=== PATIENT | male | born 1940 | race Caucasian/White ===

== ENCOUNTER 2019-07-15 14:08 | Emergency (ER) | payer MEDICARE, BC ==
--- NOTE | 2019-07-15 15:31 | EDM.PDOC ---
ED HPI GENERAL MEDICAL PROBLEM - General Chief Complaint: Respiratory Problem Stated Complaint: COUGH AND SOB Time Seen by Provider: 07/15/19 14:16 Source of Information: Reports: Patient, RN Notes Reviewed - History of Present Illness INITIAL COMMENTS - FREE TEXT/NARRATIVE: 79-year-old male comes in when he describes as severe productive cough for the last 3-1/2 weeks. This has been productive of both clear and colored phlegm. He' s had no fever or chills. He has nasal or sinus congestion. He denies sore throat. He has a long standing history of smoking and does continue to smoke with "no intention to quit". No chest pain or difficulty breathing at this time. He does have history of prior pneumonia. - Related Data Allergies Allergy/AdvReac Type Severity Reaction Status Date / Time doxycycline Allergy Vomiting Verified 07/15/19 14:15 Home Meds: Home Meds Aspirin [Halfprin] 325 mg PO DAILY 05/16/15 [History] Metoprolol Tartrate 12.5 mg PO BID 05/16/15 [History] PHENobarbital 60 mg PO BEDTIME 05/16/15 [History] Phenytoin 100 mg PO DAILY 05/16/15 [History] Phenytoin 200 mg PO BEDTIME 05/16/15 [History] Sertraline [Zoloft] 50 mg PO DAILY 05/16/15 [History] Simvastatin [Zocor] 40 mg PO BEDTIME 05/16/15 [History] Zonisamide [Zonegran] 300 mg PO Q12H 05/16/15 [History] Levofloxacin [Levaquin] 500 mg PO DAILY #9 tablet 07/15/19 [Rx] diphenhydrAMINE [Benadryl] 50 mg PO BEDTIME 07/15/19 [History] predniSONE [Prednisone] 20 mg PO DAILY #6 tablet 07/15/19 [Rx] Past Medical History HEENT History: Reports: Cataract, Impaired Vision Other HEENT History: wears eyeglasses. Cardiovascular History: Reports: High Cholesterol, Hypertension, [place] Respiratory History: Reports: Bronchitis, Recurrent, COPD, Pneumonia, Recurrent Gastrointestinal History: Reports: Chronic Constipation Other Gastrointestinal History: spleenectomy Genitourinary History: Reports: Prostate Disorder, Other (See Below) Other Genitourinary History: has difficulty with voiding. Musculoskeletal History: Reports: Fracture Neurological History: Reports: CVA, Seizure Psychiatric History: Reports: Addiction Oncologic (Cancer) History: Reports: Squamous Cell Carcinoma Dermatologic History: Reports: Other (See Below) Other Dermatologic History: skin cancer. - Infectious Disease History Infectious Disease History: Reports: Chicken Pox, Measles, Mumps - Past Surgical History HEENT Surgical History: Reports: Cataract Surgery Other HEENT Surgeries/Procedures: "ptergin" taken off of eye Cardiovascular Surgical History: Reports: Coronary Artery Bypass Other Cardiovascular Surgeries/Procedures: triple vessel Musculoskeletal Surgical History: Reports: Other (See Below) Other Musculoskeletal Surgeries/Procedures:: surgery for Fx wrist. Social & Family History - Tobacco Use Smoking Status *Q: Current Every Day Smoker Years of Tobacco use: 60 Packs/Tins Daily: 1 - Caffeine Use Caffeine Use: Reports: Coffee - Recreational Drug Use Recreational Drug Use: No ED ROS GENERAL - Review of Systems Review Of Systems: See Below Constitutional: Denies: Fever, Chills HEENT: Denies: Sinus Problem, Throat Pain Respiratory: Reports: Shortness of Breath (Chronically), Wheezing, Cough, Sputum Cardiovascular: Denies: Chest Pain GI/Abdominal: Denies: Abdominal Pain, Nausea, Vomiting Musculoskeletal: Reports: No Symptoms (No acute symptoms) Skin: Reports: No Symptoms Neurological: Reports: Dizziness (Mild chronically when standing or walking) ED EXAM, GENERAL - Physical Exam Exam: See Below General Appearance: Alert, No Apparent Distress Throat/Mouth: Normal Inspection Head: No: Facial Swelling Neck: Supple, Full Range of Motion, Other (No JVD) Respiratory/Chest: Respiratory Distress (Mild tachypnea), Rhonchi, Wheezing ( Bilateral mild bilateral) Cardiovascular: Tachycardia GI/Abdominal: Soft, Non-Tender Extremities: Normal Inspection, No Pedal Edema. No: Leg Pain, Increased Warmth , Redness Neurological: Alert, Oriented, No Motor/Sensory Deficits Skin Exam: Warm, Dry, Normal Color Course - Vital Signs Last Recorded V/S: Last Vital Signs Temp 99.6 F 07/15/19 16:15 Pulse 104 H 07/15/19 16:15 Resp 20 07/15/19 16:15 BP 135/74 07/15/19 16:15 Pulse Ox 90 L 07/15/19 16:15 - Orders/Labs/Meds Orders: Active Orders 24 hr Category Date Time Status CULTURE BLOOD [BC] Stat Lab 07/15/19 15:09 Received Labs: Laboratory Tests 07/15/19 07/15/19 07/15/19 Range/Units 15:09 15:09 15:09 WBC 14.59 H (4.23-9.07) K/mm3 RBC 4.25 L (4.63-6.08) M/mm3 Hgb 13.5 L (13.7-17.5) gm/dl Hct 42.5 (40.1-51.0) % MCV 100.0 H (79.0-92.2) fl MCH 31.8 (25.7-32.2) pg MCHC 31.8 L (32.2-35.5) g/dl RDW Std Deviation 51.2 H (35.1-43.9) fL Plt Count 332 (163-337) K/mm3 MPV 9.5 (9.4-12.3) fl Neut % (Auto) 74.6 H (34.0-67.9) % Lymph % (Auto) 11.9 L (21.8-53.1) % Lee % (Auto) 12.6 H (5.3-12.2) % Eos % (Auto) 0.3 L (0.8-7.0) Baso % (Auto) 0.4 (0.1-1.2) % Neut # (Auto) 10.89 H (1.78-5.38) K/mm3 Lymph # (Auto) 1.73 (1.32-3.57) K/mm3 Lee # (Auto) 1.84 H (0.30-0.82) K/mm3 Eos # (Auto) 0.04 (0.04-0.54) K/mm3 Baso # (Auto) 0.06 (0.01-0.08) K/mm3 Manual Slide Review Abnormal smear Sodium 140 (136-145) mEq/L Potassium 4.9 (3.5-5.1) mEq/L Chloride 105 (98-107) mEq/L Carbon Dioxide 26 (21-32) mEq/L Anion Gap 13.9 (5-15) BUN 12 (7-18) mg/dL Creatinine 0.9 (0.7-1.3) mg/dL Est Cr Clr Drug Dosing 63.36 mL/min Estimated GFR (MDRD) > 60 (>60) mL/min BUN/Creatinine Ratio 13.3 L (14-18) Glucose 95 (83-115) mg/dL Calcium 9.5 (8.5-10.1) mg/dL Total Bilirubin 0.3 (0.2-1.0) mg/dL AST 12 L (15-37) U/L ALT 14 L (16-63) U/L Alkaline Phosphatase 132 H (46-116) U/L C-Reactive Protein 11.0 H* (<1.0) mg/dL Total Protein 8.5 H (6.4-8.2) g/dl Albumin 3.1 L (3.4-5.0) g/dl Globulin 5.4 gm/dL Albumin/Globulin Ratio 0.6 L (1-2) Meds: Medications Discontinued Medications Generic Name Dose Route Start Last Admin Trade Name Micheleq PRN Reason Stop Dose Admin Levofloxacin 500 mg 07/15/19 16:03 07/15/19 16:20 Levaquin PO 07/15/19 16:04 500 mg ONETIME ONE Administration Prednisone 40 mg 07/15/19 16:03 07/15/19 16:18 Prednisone PO 07/15/19 16:04 40 mg ONETIME ONE Administration - Re-Assessments/Exams Free Text/Narrative Re-Assessment/Exam: 07/15/19 16:50 Chest x-ray shows severe emphysematous change from chronic smoking history, interstitial fibrosis but nothing that looks like an acute infiltrate at this time. See radiology report for details. White blood count was elevated and C- reactive protein also mildly elevated. he does have bronchitis, exacerbation COPD. He has been coughing up colored phlegm, getting worse. I was considering putting him on doxycycline but his states doxycycline makes him vomit. Will start on Levaquin 500 milligrams daily for a total duration of 10 days. Discharge instructions as documented. 07/16/19 07:23 Departure - Departure Time of Disposition: 16:02 Disposition: Home, Self-Care 01 Condition: Fair Clinical Impression: COPD exacerbation - Discharge Information Prescriptions: Levofloxacin [Levaquin] 500 mg PO DAILY #9 tablet predniSONE [Prednisone] 20 mg PO DAILY #6 tablet Instructions: Chronic Obstructive Pulmonary Disease, [id number] Referrals: Long Rosado PA-C [Primary Care Provider] - Forms: ED Department Discharge Additional Instructions: You've been given Levaquin 500 mg and prednisone 40 mg orally while here in the ED. Continue Levaquin 500 mg daily for the next 9 days. Continue prednisone 20 mg every morning for the next 6 days. Continue other current medications as prescribed. Try hard to stop smoking. Vaporizer or steam as needed. Neb treatments as needed. Follow-up clinic in one week for recheck, call for appointment. Return to ED as needed if symptoms worsening in any way. - My Orders Last 24 Hours: My Active Orders 07/15/19 15:09 CULTURE BLOOD [BC] Stat - Assessment/Plan Last 24 Hours: My Active Orders 07/15/19 15:09 CULTURE BLOOD [BC] Stat
--- NOTE | 2019-07-15 15:37 | CR ---
Chest: Two views of the chest were obtained. Comparison: Prior chest x-ray of 12/11/18. Lungs are hyperinflated compatible with emphysematous change. Interstitial change is noted most likely due to interstitial fibrosis as this appears fairly similar to prior exam. No definite acute parenchymal change is seen. Previous sternotomy is noted. Heart is not enlarged. Mediastinum is normal. Bony structures are osteopenic. Slight degenerative spurring is scattered within the spine. Impression: 1. Emphysematous change and probable interstitial fibrosis. 2. Other findings which are believed to be incidental. Nothing acute is appreciated. Diagnostic code #2
[2019-07-15] MEDS ORDERED: predniSONE 20 MG Tab PO ONE (16:03)
[2019-07-15] MEDS ORDERED: Levofloxacin 500 MG Tab PO ONE (16:03)
[2019-07-15 16:33] VITALS: BP 135/74; PULSE 104
== END 2019-07-15 16:30 | disposition home or self-care (01) ==
LOC: JD.ED 14:08
DX: J44.1 Chronic obstructive pulmonary disease with (acute) exacerbation (principal); I10 Essential (primary) hypertension; I25.2 Old myocardial infarction; E78.00 Pure hypercholesterolemia, unspecified; G40.909 Epilepsy, unspecified, not intractable, without status epilepticus; F17.210 Nicotine dependence, cigarettes, uncomplicated; Z79.82 Long term (current) use of aspirin; Z88.1 Allergy status to other antibiotic agents; Z79.899 Other long term (current) drug therapy; Z86.73 Personal history of transient ischemic attack (TIA), and cerebral infarction without residual deficits; Z79.52 Long term (current) use of systemic steroids
CPT/HCPCS: 36415; 71046; 80053; 85025; 86140; 87040; 99283; A9270

== ENCOUNTER 2019-10-27 12:28 | Emergency (ER) | payer MEDICARE, BC ==
[2019-10-27 12:59] VITALS: BP 141/84; PULSE 96
[2019-10-27] MEDS ORDERED: Sodium Chloride 0.9% 10 ML Syringe FLUSH PRN (13:10)
[2019-10-27] MEDS ORDERED: Lidocaine/EPINEPHrine/Tetracaine Soln 1 ML TOP ONE (13:10)
[2019-10-27] MEDS ORDERED: Phenytoin 100 MG Cap.ER PO ONE (14:09)
--- NOTE | 2019-10-27 14:09 | CR ---
Chest: Two views of the chest were obtained. Comparison: Prior chest x-ray of 07/23/19. Lungs are hyperinflated compatible with emphysematous change. Mild interstitial fibrosis is noted which appears to be stable. Heart size is normal. Upper mediastinum is normal. 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 Impression: 1. Emphysematous change and stable interstitial fibrosis. 2. Nothing acute is identified. Diagnostic code #2 This report was dictated in [place] Standard Time
--- NOTE | 2019-10-27 14:18 | EDM.PDOC ---
ED HPI GENERAL MEDICAL PROBLEM - General Chief Complaint: Neurological Problem Stated Complaint: FALLS,SEIZURES,HEAD LAC Time Seen by Provider: 10/27/19 12:51 Source of Information: Reports: Patient, Family History Limitations: Reports: No Limitations - History of Present Illness INITIAL COMMENTS - FREE TEXT/NARRATIVE: The patient presents because of a seizure. He has a history of seizures. He has had 3 in the past month. Normally he will get 3 in a year. He is on dilantin and zonisamide. He saw his neurologist Dr Fontenot 1 month ago and all his labs and levels looked good. He may have missed a dose here or there but nothing consistently. He has no fever, chills, abdominal pain, nausea or vomiting. He does smoke and he has a cough but that is not new. He has been getting less sleep lately. He did fall and cut the top of his head. His tetanus is up to date. Onset: Sudden Duration: Minutes: Location: Reports: Head Quality: Reports: Ache Severity: Mild Improves with: Reports: None Worsens with: Reports: None Associated Symptoms: Reports: Cough, Headaches. Denies: Chest Pain, Fever/ Chills, Nausea/Vomiting, Shortness of Breath - Related Data Allergies Allergy/AdvReac Type Severity Reaction Status Date / Time doxycycline Allergy Vomiting Verified 10/27/19 12:59 Home Meds: Home Meds Aspirin [Halfprin] 325 mg PO DAILY 05/16/15 [History] Metoprolol Tartrate 12.5 mg PO BID 05/16/15 [History] PHENobarbitaL [PHENobarbital] 30 mg PO BEDTIME 05/16/15 [History] Sertraline [Zoloft] 50 mg PO DAILY 05/16/15 [History] Simvastatin [Zocor] 80 mg PO BEDTIME 05/16/15 [History] Zonisamide [Zonegran] 100 mg PO Q12H 05/16/15 [History] Folic Acid 1 mg PO DAILY 10/27/19 [History] Phenytoin Sodium Extended [Dilantin] 100 mg PO ASDIRECTED 10/27/19 [History] Phenytoin Sodium Extended [Dilantin] 200 mg PO BEDTIME 10/27/19 [History] Phenytoin Sodium Extended [Dilantin] 200 mg PO BID #120 capsule 10/27/19 [Rx] Past Medical History HEENT History: Reports: Cataract, Impaired Vision Other HEENT History: wears eyeglasses. Cardiovascular History: Reports: High Cholesterol, Hypertension, [place] Respiratory History: Reports: Bronchitis, Recurrent, COPD, Pneumonia, Recurrent Gastrointestinal History: Reports: Chronic Constipation Other Gastrointestinal History: spleenectomy Genitourinary History: Reports: Prostate Disorder, Other (See Below) Other Genitourinary History: has difficulty with voiding. Musculoskeletal History: Reports: Fracture Neurological History: Reports: CVA, Seizure Psychiatric History: Reports: Addiction Oncologic (Cancer) History: Reports: Squamous Cell Carcinoma Dermatologic History: Reports: Other (See Below) Other Dermatologic History: skin cancer. - Infectious Disease History Infectious Disease History: Reports: Chicken Pox, Measles, Mumps - Past Surgical History HEENT Surgical History: Reports: Cataract Surgery Other HEENT Surgeries/Procedures: "ptergin" taken off of eye Cardiovascular Surgical History: Reports: Coronary Artery Bypass Other Cardiovascular Surgeries/Procedures: triple vessel Musculoskeletal Surgical History: Reports: Other (See Below) Other Musculoskeletal Surgeries/Procedures:: surgery for Fx wrist. Social & Family History - Tobacco Use Smoking Status *Q: Current Every Day Smoker Years of Tobacco use: 50 Packs/Tins Daily: 1 - Caffeine Use Caffeine Use: Reports: Coffee, Soda - Recreational Drug Use Recreational Drug Use: No ED ROS GENERAL - Review of Systems Review Of Systems: See Below Constitutional: Reports: No Symptoms HEENT: Reports: No Symptoms Respiratory: Reports: Cough. Denies: Shortness of Breath Cardiovascular: Reports: No Symptoms Endocrine: Reports: No Symptoms GI/Abdominal: Reports: No Symptoms : Reports: No Symptoms Musculoskeletal: Reports: No Symptoms Skin: Reports: No Symptoms Neurological: Reports: Headache - Physical Exam Exam: See Below Exam Limited By: No Limitations General Appearance: Alert, No Apparent Distress Ears: Normal External Exam Nose: Normal Inspection Throat/Mouth: Normal Inspection Head Exam: Other (2cm laceration to the top of his head) Neck: Normal Inspection, Supple, Non-Tender Respiratory/Chest: No Respiratory Distress, Lungs Clear, Normal Breath Sounds Cardiovascular: Regular Rate, Rhythm, No Edema, No Murmur GI/Abdominal: Soft, Non-Tender, No Organomegaly, No Mass Neuro Exam (Abbreviated): Alert, Oriented, No Motor/Sensory Deficits ED PROCEDURES - Laceration/Wound Repair Head Lac/wound length in cm: 2 Appearance: Irregular Anesthetic Type: Topical (LET) Exploration/Debridement/Repair: Wound Explored, In a Bloodless Field, Explored to Base Closed with: Wound Adhesive Tetanus Status Addressed: Yes Complications: No Course - Vital Signs Last Recorded V/S: Last Vital Signs Temp 97.0 F 10/27/19 12:51 Pulse 96 10/27/19 12:51 Resp 20 10/27/19 12:51 BP 141/84 H 10/27/19 12:51 Pulse Ox 98 10/27/19 12:51 - Orders/Labs/Meds Orders: Active Orders 24 hr Category Date Time Status Cardiac Monitoring [RC] . DIRECTED Care 10/27/19 13:09 Active Peripheral IV Care [RC] . DIRECTED Care 10/27/19 13:10 Active ZONISAMIDE(ZONEGRAN), SERUM [REF] Stat Lab 10/27/19 13:01 Received Sodium Chloride 0.9% [Saline Flush] Med 10/27/19 13:10 Active 10 ml FLUSH ASDIRECTED PRN Peripheral IV Insertion Adult [OM.PC] Routine Oth 10/27/19 13:10 Ordered Medication Orders Sodium Chloride (Saline Flush) 10 ml FLUSH ASDIRECTED PRN PRN Reason: Keep Vein Open Last Admin: 10/27/19 14:04 Dose: 10 ml Labs: Laboratory Tests 10/27/19 10/27/19 Range/Units 13:01 13:01 WBC 11.24 H (4.23-9.07) K/mm3 RBC 4.23 L (4.63-6.08) M/mm3 Hgb 13.8 (13.7-17.5) gm/dl Hct 41.6 (40.1-51.0) % MCV 98.3 H (79.0-92.2) fl MCH 32.6 H (25.7-32.2) pg MCHC 33.2 (32.2-35.5) g/dl RDW Std Deviation 51.2 H (35.1-43.9) fL Plt Count 302 D (163-337) K/mm3 MPV 9.6 (9.4-12.3) fl Neut % (Auto) 73.9 H (34.0-67.9) % Lymph % (Auto) 15.9 L (21.8-53.1) % Payne % (Auto) 8.2 (5.3-12.2) % Eos % (Auto) 1.3 (0.8-7.0) Baso % (Auto) 0.7 (0.1-1.2) % Neut # (Auto) 8.30 H (1.78-5.38) K/mm3 Lymph # (Auto) 1.79 (1.32-3.57) K/mm3 Payne # (Auto) 0.92 H (0.30-0.82) K/mm3 Eos # (Auto) 0.15 (0.04-0.54) K/mm3 Baso # (Auto) 0.08 (0.01-0.08) K/mm3 Manual Slide Review Normal smear Sodium 135 L (136-145) mEq/L Potassium 4.3 (3.5-5.1) mEq/L Chloride 101 (98-107) mEq/L Carbon Dioxide 23 (21-32) mEq/L Anion Gap 15.3 H (5-15) BUN 14 (7-18) mg/dL Creatinine 0.9 (0.7-1.3) mg/dL Est Cr Clr Drug Dosing 47.74 mL/min Estimated GFR (MDRD) > 60 (>60) mL/min BUN/Creatinine Ratio 15.6 (14-18) Glucose 80 L (83-115) mg/dL Calcium 9.0 (8.5-10.1) mg/dL Magnesium 2.3 (1.8-2.4) mg/dl Total Bilirubin 0.3 (0.2-1.0) mg/dL AST 16 (15-37) U/L ALT 20 (16-63) U/L Alkaline Phosphatase 151 H (46-116) U/L Total Protein 8.5 H (6.4-8.2) g/dl Albumin 3.8 (3.4-5.0) g/dl Globulin 4.7 gm/dL Albumin/Globulin Ratio 0.8 L (1-2) Phenytoin 7.2 L (10.0-20.0) ug/mL Meds: Medications Generic Name Dose Route Start Last Admin Trade Name Freq PRN Reason Stop Dose Admin Sodium Chloride 10 ml 10/27/19 13:10 10/27/19 14:04 Saline Flush FLUSH 10 ml ASDIRECTED PRN Administration Keep Vein Open Discontinued Medications Generic Name Dose Route Start Last Admin Trade Name Luna PRN Reason Stop Dose Admin Lidocaine/Tetracaine 1 ml 10/27/19 13:10 10/27/19 14:04 Margret Donnelly TOP 10/27/19 13:11 1 ml ONETIME ONE Administration Phenytoin Sodium 300 mg 10/27/19 14:09 10/27/19 14:23 Phenytoin PO 10/27/19 14:10 300 mg ONETIME ONE Administration - Re-Assessments/Exams Free Text/Narrative Re-Assessment/Exam: 10/27/19 14:16 I ordered an IV saline lock, CT of his head, CXR and labs. His CXR shows emphysematous change and stable interstitial fibrosis. Nothing acute is identified. His WBC is a little elevated at 11.24. His Na was a little low at 135. His anion gap was 15.3. His alk phos was elevated at 151. His phenytoin was low at 7.2. His lipase is normal. His troponin is negative. 10/27/19 15:[address] of his head shows nothing acute. I closed the laceration with adhesive. I gave him a dose of dilantin here. I will up him to 200mg BID. Departure - Departure Time of Disposition: 15:50 Disposition: Home, Self-Care 01 Condition: Good Clinical Impression: Seizure Fall Qualifiers: Encounter type: initial encounter Qualified Code(s): W19.XXXA - Unspecified fall, initial encounter Laceration of head Qualifiers: Encounter type: initial encounter Location of open wound of head: scalp Foreign body presence: without foreign body Qualified Code(s): S01.01XA - Laceration without foreign body of scalp, initial encounter - Discharge Information *PRESCRIPTION DRUG MONITORING PROGRAM REVIEWED*: Not Applicable *COPY OF PRESCRIPTION DRUG MONITORING REPORT IN PATIENT KELLY: Not Applicable Prescriptions: Phenytoin Sodium Extended [Dilantin] 200 mg PO BID #120 capsule Referrals: Long Rosado PA-C [Primary Care Provider] - 1 Week Forms: ED Department Discharge Additional Instructions: Take the phenytoin 200mg 2 times per day. Take your other medications as prescribed. The adhesive on your head will wear off in about a week. Look for any signs of infection such as redness, swelling, pain, or discharge. If you see these signs please return of see your provider. You may need some antibiotics. Try to get more sleep and avoid alcohol like you have been doing. Sepsis Event Note - Evaluation Sepsis Screening Result: No Definite Risk - Focused Exam Vital Signs: Vital Signs Temp Pulse Resp BP Pulse Ox 10/27/19 12:51 97.0 F 96 20 141/84 H 98 Date Exam was Performed: 10/27/19 Time Exam was Performed: 15:37 - My Orders Last 24 Hours: My Active Orders 10/27/19 13:01 ZONISAMIDE(ZONEGRAN), SERUM [REF] Stat 10/27/19 13:09 Cardiac Monitoring [RC] . DIRECTED 10/27/19 13:10 Peripheral IV Care [RC] . DIRECTED Sodium Chloride 0.9% [Saline Flush] 10 ml FLUSH ASDIRECTED PRN Peripheral IV Insertion Adult [OM.PC] Routine - Assessment/Plan Last 24 Hours: My Active Orders 10/27/19 13:01 ZONISAMIDE(ZONEGRAN), SERUM [REF] Stat 10/27/19 13:09 Cardiac Monitoring [RC] . DIRECTED 10/27/19 13:10 Peripheral IV Care [RC] . DIRECTED Sodium Chloride 0.9% [Saline Flush] 10 ml FLUSH ASDIRECTED PRN Peripheral IV Insertion Adult [OM.PC] Routine
--- NOTE | 2019-10-27 15:19 | CT ---
Head CT Technique: Multiple axial sections through the brain were obtained. Intravenous contrast was not utilized. Comparison: No prior intracranial imaging is available. Findings: Linear area of calcification as well as adjacent fat is seen interhemispheric falx anteriorly which is believed to be benign and most likely is chronic. Ventricles along with basal cisterns and sulci over the convexities are mildly prominent. Mild diminished density is noted within the periventricular and subcortical white matter compatible with small vessel ischemic demyelination change. Atherosclerotic calcification is seen within the carotid siphon. Moderate mucosal thickening is seen within right maxillary sinus. Calcification is noted within the right ethmoid sinus most likely due to osteoma. No acute calvarial abnormality is appreciated. Mastoid sinuses are clear. Impression: 1. Sinus findings which are most likely chronic. 2. Linear calcification as well as adjacent fat within the anterior interhemispheric falx which is most likely benign. 3. Senescent change as noted above. Nothing acute is appreciated. Diagnostic code #2 Study was dictated in [place] Standard Time
== END 2019-10-27 15:50 | disposition home or self-care (01) ==
LOC: JD.ED 12:28
DX: S01.01XA Laceration without foreign body of scalp, initial encounter (principal); G40.909 Epilepsy, unspecified, not intractable, without status epilepticus; E78.00 Pure hypercholesterolemia, unspecified; I10 Essential (primary) hypertension; I25.2 Old myocardial infarction; J44.9 Chronic obstructive pulmonary disease, unspecified; F17.210 Nicotine dependence, cigarettes, uncomplicated; Z88.1 Allergy status to other antibiotic agents; Z86.73 Personal history of transient ischemic attack (TIA), and cerebral infarction without residual deficits; Z79.82 Long term (current) use of aspirin; Z79.899 Other long term (current) drug therapy; W01.10XA Fall on same level from slipping, tripping and stumbling with subsequent striking against unspecified object, initial encounter
CPT/HCPCS: 36415; 70450; 71046; 80053; 80185; 80203; 83735; 85025; 99284; A9270; 12001; 99283

== ENCOUNTER 2019-12-29 12:28 | Emergency (ER) | payer MEDICARE, BC ==
[2019-12-29] MEDS ORDERED: Sodium Chloride 0.9% 10 ML Syringe FLUSH PRN (12:47)
[2019-12-29 12:57] VITALS: BP 135/75; PULSE 70
--- NOTE | 2019-12-29 13:06 | EDM.PDOC ---
ED HPI GENERAL MEDICAL PROBLEM - General Chief Complaint: Head Injury Stated Complaint: FELL AND HIT HEAD Time Seen by Provider: 12/29/19 12:45 Source of Information: Reports: Patient, Old Records History Limitations: Reports: No Limitations - History of Present Illness INITIAL COMMENTS - FREE TEXT/NARRATIVE: Aleta is a 79 year old male here for a head injury. Reports he was walking when his legs gave out and he struck his head against a door. Laceration to the right parietal scalp. No LOC. Reports a headache. no neck pain, vision changes, nausea, vomiting, chest pain or shortness of breath. Patient has a seizure history. Reportedly has been having seizures at night (per his wife0. would like his Dilantin level checked today. He is on 325mg aspirin daily. - Related Data Allergies Allergy/AdvReac Type Severity Reaction Status Date / Time doxycycline Allergy Vomiting Verified 10/27/19 12:59 Home Meds: Home Meds Aspirin [Halfprin] 325 mg PO DAILY 05/16/15 [History] Metoprolol Tartrate 25 mg PO BEDTIME 05/16/15 [History] PHENobarbitaL [PHENobarbital] 0 mg PO BEDTIME 05/16/15 [History] Sertraline [Zoloft] 50 mg PO DAILY 05/16/15 [History] Simvastatin [Zocor] 80 mg PO BEDTIME 05/16/15 [History] Zonisamide [Zonegran] 300 mg PO Q12H 05/16/15 [History] Folic Acid 1 mg PO DAILY 10/27/19 [History] Phenytoin Sodium Extended [Dilantin] 200 mg PO BID #120 capsule 10/27/19 [Rx] Past Medical History HEENT History: Reports: Cataract, Impaired Vision Other HEENT History: wears eyeglasses. Cardiovascular History: Reports: High Cholesterol, Hypertension, AR Respiratory History: Reports: Bronchitis, Recurrent, COPD, Pneumonia, Recurrent Gastrointestinal History: Reports: Chronic Constipation Other Gastrointestinal History: spleenectomy Genitourinary History: Reports: Prostate Disorder, Other (See Below) Other Genitourinary History: has difficulty with voiding. Musculoskeletal History: Reports: Fracture Neurological History: Reports: CVA, Head Trauma, Seizure Psychiatric History: Reports: Addiction Oncologic (Cancer) History: Reports: Squamous Cell Carcinoma Dermatologic History: Reports: Other (See Below) Other Dermatologic History: skin cancer. - Infectious Disease History Infectious Disease History: Reports: Chicken Pox, Measles, Mumps - Past Surgical History Head Surgeries/Procedures: Reports: Craniotomy HEENT Surgical History: Reports: Cataract Surgery Other HEENT Surgeries/Procedures: "ptergin" taken off of eye. Cranial surgery Cardiovascular Surgical History: Reports: Coronary Artery Bypass Other Cardiovascular Surgeries/Procedures: triple vessel GI Surgical History: Reports: None, Appendectomy, Cholecystectomy Musculoskeletal Surgical History: Reports: Other (See Below) Other Musculoskeletal Surgeries/Procedures:: surgery for Fx wrist. Social & Family History - Family History Family Medical History: Noncontributory - Tobacco Use Smoking Status *Q: Heavy Tobacco Smoker Years of Tobacco use: 60 Packs/Tins Daily: 1 - Caffeine Use Caffeine Use: Reports: Coffee - Recreational Drug Use Recreational Drug Use: No ED ROS GENERAL - Review of Systems Review Of Systems: See Below HEENT: Denies: Vision Change Respiratory: Denies: Shortness of Breath Cardiovascular: Denies: Chest Pain, Lightheadedness, Syncope GI/Abdominal: Denies: Abdominal Pain, Nausea, Vomiting Skin: Reports: Wound (right scalp) Neurological: Reports: Headache, Seizure. Denies: Numbness, Syncope, Tingling, Difficulty Walking ED EXAM, HEAD INJURY - Physical Exam Exam: See Below Exam Limited By: No Limitations General Appearance: Alert, WD/WN, No Apparent Distress, Thin Head: Normocephalic, Scalp Lacerations (3cm right superior parietal scalp), Facial Swelling (left brow). No: Active Bleeding, Randolph's Sign, Raccoon Eyes Nexus Criteria: No: Posterior, Midline Cervical Tenderness, Evidence of Intoxication, Altered Level of Consciousness, Focal Neurological Deficit, Painful Distraction Injuries Eyes: Bilateral Eye: EOMI, Normal Inspection (cataracs), PERRL Ears: Normal External Exam, Normal Canal, Hearing Grossly Normal, Normal TMs. No: TM Blood Nose: Normal Inspection, No Blood Throat/Mouth: Normal Inspection, Normal Lips, Normal Teeth, Normal Gums, Normal Oropharynx, Normal Voice, No Airway Compromise Neck: Non-Tender, Full Range of Motion, Normal Alignment, Normal Inspection. No : Paraspinous Muscle Tender, Spinous Processes Tender Respiratory: No Respiratory Distress, Lungs Clear, Normal Breath Sounds, Chest Non-Tender Cardiovascular: Normal Peripheral Pulses, Regular Rate, Rhythm, No Murmur GI/Abdominal Exam: Normal Bowel Sounds, Soft, Non-Tender Back Exam: Normal Inspection Extremities: Normal Inspection, Normal Range of Motion, Non-Tender Neurologic: Alert, Normal Mood/Affect Skin: Normal Color, Warm/Dry - Frank Coma Score Best Eye Response (Frank): (4) Open Spontaneously Best Verbal Response (Frank): (5) Oriented Best Motor Response (Frank): (6) Obeys Commands ED LACERATION/WOUND & DAVONTE PROC - Laceration/Wound Repair Right Lateral Head Lac/wound length in cm: 3 Appearance: Subcutaneous Anesthetic Type: Local Local Anesthesia - Lidocaine (Xylocaine): 1% Plain Local Anesthetic Volume: 2cc Skin Prep: Saline Exploration/Debridement/Repair: Wound Explored, No Foreign Material Found Closed with: Antonio # of Sutures: 5 Sterile Dressing Applied: Nurse Tetanus Status Addressed: Yes Complications: No Course - Vital Signs Last Recorded V/S: Last Vital Signs Temp 98 F 12/29/19 12:56 Pulse 70 12/29/19 12:56 Resp 20 12/29/19 12:56 BP 135/75 12/29/19 12:56 Pulse Ox 97 12/29/19 12:56 - Orders/Labs/Meds Orders: Active Orders 24 hr Category Date Time Status Influenza Vaccine Charge [RC] .DISCHARGE Care 12/29/19 12:55 Active Peripheral IV Care [RC] . DIRECTED Care 12/29/19 12:47 Active ZONISAMIDE(ZONEGRAN), SERUM [REF] Stat Lab 12/29/19 12:56 Received Peripheral IV Insertion Adult [OM.PC] Routine Oth 12/29/19 12:47 Ordered Labs: Laboratory Tests 12/29/19 12/29/19 Range/Units 12:56 12:56 WBC 9.97 H (4.23-9.07) K/mm3 RBC 4.15 L (4.63-6.08) M/mm3 Hgb 13.3 L (13.7-17.5) gm/dl Hct 41.9 (40.1-51.0) % MCV 101.0 H (79.0-92.2) fl MCH 32.0 (25.7-32.2) pg MCHC 31.7 L (32.2-35.5) g/dl RDW Std Deviation 53.3 H (35.1-43.9) fL Plt Count 337 (163-337) K/mm3 MPV 8.9 L (9.4-12.3) fl Neut % (Auto) 57.0 (34.0-67.9) % Lymph % (Auto) 25.2 (21.8-53.1) % [place] % (Auto) 10.9 (5.3-12.2) % Eos % (Auto) 5.9 (0.8-7.0) Baso % (Auto) 0.9 (0.1-1.2) % Neut # (Auto) 5.68 H (1.78-5.38) K/mm3 Lymph # (Auto) 2.51 (1.32-3.57) K/mm3 [place] # (Auto) 1.09 H (0.30-0.82) K/mm3 Eos # (Auto) 0.59 H (0.04-0.54) K/mm3 Baso # (Auto) 0.09 H (0.01-0.08) K/mm3 Sodium 137 (136-145) mEq/L Potassium 4.4 (3.5-5.1) mEq/L Chloride 102 (98-107) mEq/L Carbon Dioxide 24 (21-32) mEq/L Anion Gap 15.4 H (5-15) BUN 13 (7-18) mg/dL Creatinine 0.9 (0.7-1.3) mg/dL Est Cr Clr Drug Dosing TNP Estimated GFR (MDRD) > 60 (>60) mL/min BUN/Creatinine Ratio 14.4 (14-18) Glucose 83 (83-115) mg/dL Calcium 8.7 (8.5-10.1) mg/dL Total Bilirubin 0.3 (0.2-1.0) mg/dL AST 17 (15-37) U/L ALT 14 L (16-63) U/L Alkaline Phosphatase 165 H (46-116) U/L Total Protein 7.9 (6.4-8.2) g/dl Albumin 3.7 (3.4-5.0) g/dl Globulin 4.2 gm/dL Albumin/Globulin Ratio 0.9 L (1-2) Phenytoin 31.8 H* (10.0-20.0) ug/mL Meds: Medications Discontinued Medications Generic Name Dose Route Start Last Admin Trade Name Freq PRN Reason Stop Dose Admin Influenza Virus Vaccine 180 mcg 12/29/19 13:15 12/29/19 16:15 Fluzone High-Dose 2018- Syringe IM 12/29/19 13:16 180 mcg .ONCE ONE Administration Lidocaine HCl 50 ml 12/29/19 14:15 12/29/19 16:15 Xylocaine 1% INJECT 12/29/19 14:16 50 ml ONETIME ONE Administration Sodium Chloride 10 ml 12/29/19 12:47 12/29/19 12:56 Saline Flush FLUSH 10 ml ASDIRECTED PRN Administration Keep Vein Open - Radiology Interpretation Free Text/Narrative:: Head CT Technique: Multiple axial sections through the brain were obtained. Intravenous contrast was not utilized. Comparison: Prior head CT study of 10/27/19. Findings: Ventricles along with basal cisterns and sulci over the convexities are mildly prominent. Calcification is seen adjacent to the interhemispheric falx with an adjacent area of fat being seen which is stable from prior head CT exam and is felt to be benign. Mild areas of diminished density are noted within the periventricular white matter which is felt compatible with small vessel ischemic demyelination change. Atherosclerotic change is noted within the carotid siphon. Old lacunar infarct is seen within the basal ganglia. No other abnormal parenchymal densities are seen. No evidence of intracranial hemorrhage. No midline shift or mass-effect is seen. Bone window settings were reviewed. Mild areas of mucosal thickening is seen within the ethmoid sinuses. No acute calvarial abnormality is seen. Visualized mastoid sinuses show nothing acute. Impression: 1. Senescent change as noted above. 2. No acute intracranial abnormality is appreciated. - Re-Assessments/Exams Free Text/Narrative Re-Assessment/Exam: 12/29/19 15:[address] results and labs with patient. Discussed Dilantin level with , Vidhya, over the phone. 5 antonio placed. Patient tolerated well. No complications. Discharge instructions as documented. Departure - Departure Time of Disposition: 15:50 Disposition: Home, Self-Care 01 Condition: Good Clinical Impression: Laceration of head Qualifiers: Encounter type: initial encounter Location of open wound of head: scalp Foreign body presence: without foreign body Qualified Code(s): S01.01XA - Laceration without foreign body of scalp, initial encounter - Discharge Information *PRESCRIPTION DRUG MONITORING PROGRAM REVIEWED*: No *COPY OF PRESCRIPTION DRUG MONITORING REPORT IN PATIENT KELLY: No Instructions: Head Injury, Adult, [id number] Referrals: Long Rosado PA-C [Primary Care Provider] - Forms: ED Department Discharge Additional Instructions: Reduce you dilantin to 200mg evening and 100mg morning, your original dose prescribed by your neurologist. Follow-up with neurology as planned. Cassandra need to be removed in 5-7 days. the walk-in clinic or your PCP can do this for you. Wash the wound with gentle soap and water. Apply antibacterial ointment bid. monitor for signs of infection such as increased swelling, pus or redness. please return to the clinic or the ER should these develop. Please return to the ER should your symptoms change or worsen. Sepsis Event Note - Evaluation Sepsis Screening Result: No Definite Risk - Focused Exam Vital Signs: Vital Signs Temp Pulse Resp BP Pulse Ox 12/29/19 12:56 98 F 70 20 135/75 97 Date Exam was Performed: 12/29/19 Time Exam was Performed: 23:37 - My Orders Last 24 Hours: My Active Orders 12/29/19 12:47 Peripheral IV Care [RC] . DIRECTED Peripheral IV Insertion Adult [OM.PC] Routine 12/29/19 12:55 Influenza Vaccine Charge [RC] .DISCHARGE 12/29/19 12:56 ZONISAMIDE(ZONEGRAN), SERUM [REF] Stat - Assessment/Plan Last 24 Hours: My Active Orders 12/29/19 12:47 Peripheral IV Care [RC] . DIRECTED Peripheral IV Insertion Adult [OM.PC] Routine 12/29/19 12:55 Influenza Vaccine Charge [RC] .DISCHARGE 12/29/19 12:56 ZONISAMIDE(ZONEGRAN), SERUM [REF] Stat
--- NOTE | 2019-12-29 13:35 | CT ---
Head CT Technique: Multiple axial sections through the brain were obtained. Intravenous contrast was not utilized. Comparison: Prior head CT study of 10/27/19. Findings: Ventricles along with basal cisterns and sulci over the convexities are mildly prominent. Calcification is seen adjacent to the interhemispheric falx with an adjacent area of fat being seen which is stable from prior head CT exam and is felt to be benign. Mild areas of diminished density are noted within the periventricular white matter which is felt compatible with small vessel ischemic demyelination change. Atherosclerotic change is noted within the carotid siphon. Old lacunar infarct is seen within the basal ganglia. No other abnormal parenchymal densities are seen. No evidence of intracranial hemorrhage. No midline shift or mass-effect is seen. Bone window settings were reviewed. Mild areas of mucosal thickening is seen within the ethmoid sinuses. No acute calvarial abnormality is seen. Visualized mastoid sinuses show nothing acute. Impression: 1. Senescent change as noted above. 2. No acute intracranial abnormality is appreciated. Diagnostic code #2 This report was dictated in MDT
[2019-12-29] MEDS ORDERED: Lidocaine 1% 50 ML MDV INJECT ONE (14:15)
== END 2019-12-29 16:35 | disposition home or self-care (01) ==
LOC: JD.ED 12:28
DX: S01.01XA Laceration without foreign body of scalp, initial encounter (principal); I10 Essential (primary) hypertension; Z23 Encounter for immunization; E78.00 Pure hypercholesterolemia, unspecified; I25.2 Old myocardial infarction; Z86.73 Personal history of transient ischemic attack (TIA), and cerebral infarction without residual deficits; F17.210 Nicotine dependence, cigarettes, uncomplicated; Z88.1 Allergy status to other antibiotic agents; Z79.82 Long term (current) use of aspirin; Z79.899 Other long term (current) drug therapy; W22.8XXA Striking against or struck by other objects, initial encounter
CPT/HCPCS: 12002; 70450; 80053; 80185; 80203; 85025; 90662; 99284; G0008; J2001; 36415; 99283

== ENCOUNTER 2020-02-08 19:28 | Emergency (ER) | payer MEDICARE, BC ==
[2020-02-08 19:54] VITALS: BP 115/65; PULSE 126
--- NOTE | 2020-02-08 20:11 | EDM.PDOC ---
ED HPI GENERAL MEDICAL PROBLEM - General Chief Complaint: General Stated Complaint: VOMITING, BODY ACHES, FEVER Time Seen by Provider: 02/08/20 20:03 - History of Present Illness INITIAL COMMENTS - FREE TEXT/NARRATIVE: 79-year-old male presents the emergency room with fevers chills nausea and generally not feeling well. Patient's gives a history of him being very unsteady on his feet having difficulty walking because of balance issues. Patient states he is just does not feel well he is alert and cooperative when he first comes into the emergency room answers questions very appropriately. The patient does complain of having chills nausea vomiting and just not been himself. Patient has a history of seizure disorder his Dilantin level was found to be high and they recently decreased the dose of this. Patient denies chest pain chest pressure he is not aware of any breathing difficulties or shortness of breath. He is not aware of any worsening lower extremity edema. Patient does have a very long smoking history and he does know he has COPD apparently this is fairly new diagnosis for him. Bilateral Leg Pain Score (Numeric/FACES): 6 - Related Data Allergies Allergy/AdvReac Type Severity Reaction Status Date / Time doxycycline Allergy Vomiting Verified 02/08/20 19:54 Home Meds: Home Meds Aspirin [Halfprin] 325 mg PO DAILY 05/16/15 [History] Metoprolol Tartrate 25 mg PO BEDTIME 05/16/15 [History] PHENobarbitaL [PHENobarbital] 60 mg PO BEDTIME 05/16/15 [History] Sertraline [Zoloft] 50 mg PO DAILY 05/16/15 [History] Simvastatin [Zocor] 80 mg PO BEDTIME 05/16/15 [History] Zonisamide [Zonegran] 300 mg PO Q12H 05/16/15 [History] Folic Acid 1 mg PO DAILY 10/27/19 [History] Phenytoin 100 mg PO DAILY 02/08/20 [History] Phenytoin Sodium Extended [Dilantin] 200 mg PO BEDTIME 02/08/20 [History] Past Medical History HEENT History: Reports: Cataract, Impaired Vision Other HEENT History: wears eyeglasses. Cardiovascular History: Reports: High Cholesterol, Hypertension, CT Respiratory History: Reports: Bronchitis, Recurrent, COPD, Pneumonia, Recurrent Gastrointestinal History: Reports: Chronic Constipation Other Gastrointestinal History: spleenectomy Genitourinary History: Reports: Prostate Disorder, Other (See Below) Other Genitourinary History: has difficulty with voiding. Musculoskeletal History: Reports: Fracture Neurological History: Reports: CVA, Head Trauma, Seizure Psychiatric History: Reports: Addiction Oncologic (Cancer) History: Reports: Squamous Cell Carcinoma Dermatologic History: Reports: Other (See Below) Other Dermatologic History: skin cancer. - Infectious Disease History Infectious Disease History: Reports: Chicken Pox, Measles, Mumps - Past Surgical History Head Surgeries/Procedures: Reports: Craniotomy HEENT Surgical History: Reports: Cataract Surgery Other HEENT Surgeries/Procedures: "ptergin" taken off of eye. Cranial surgery Cardiovascular Surgical History: Reports: Coronary Artery Bypass Other Cardiovascular Surgeries/Procedures: triple vessel GI Surgical History: Reports: None, Appendectomy, Cholecystectomy Musculoskeletal Surgical History: Reports: Other (See Below) Other Musculoskeletal Surgeries/Procedures:: surgery for Fx wrist. Social & Family History - Family History Family Medical History: Noncontributory - Tobacco Use Smoking Status *Q: Current Every Day Smoker Years of Tobacco use: 60 Packs/Tins Daily: 1.5 - Caffeine Use Caffeine Use: Reports: Coffee - Recreational Drug Use Recreational Drug Use: No ED ROS GENERAL - Review of Systems Review Of Systems: See Below Constitutional: Reports: Fever, Chills. Denies: No Symptoms, Malaise, Weakness , Fatigue, Decreased Appetite HEENT: Reports: No Symptoms Respiratory: Reports: No Symptoms Cardiovascular: Reports: No Symptoms Endocrine: Reports: No Symptoms GI/Abdominal: Reports: No Symptoms : Reports: No Symptoms Musculoskeletal: Reports: No Symptoms Skin: Reports: No Symptoms Neurological: Reports: No Symptoms, Seizure Psychiatric: Reports: No Symptoms ED EXAM, GENERAL - Physical Exam Exam: See Below Exam Limited By: No Limitations General Appearance: Alert, No Apparent Distress Eye Exam: Bilateral Eye: EOMI, Normal Inspection, PERRL Ears: Normal External Exam, Normal Canal, Hearing Grossly Normal, Normal TMs Nose: Normal Inspection, Normal Mucosa, No Blood Throat/Mouth: Normal Inspection, Normal Lips, Normal Gums, Normal Oropharynx, Normal Voice, No Airway Compromise Head: Atraumatic, Normocephalic Neck: Normal Inspection, Supple, Non-Tender, Full Range of Motion. No: Lymphadenopathy (L), Lymphadenopathy (R) Respiratory/Chest: No Respiratory Distress, Lungs Clear, Normal Breath Sounds, No Accessory Muscle Use, Decreased Breath Sounds Cardiovascular: Regular Rate, Rhythm, No Edema, No Murmur GI/Abdominal: Normal Bowel Sounds, Soft, Non-Tender Back Exam: Normal Inspection. No: CVA Tenderness (L), CVA Tenderness (R) Extremities: Normal Inspection Neurological: Alert, Oriented, CN II-XII Intact, Normal Cognition, Normal Reflexes, No Motor/Sensory Deficits, Other (Patient had what we think was an epileptic episode he was found with decreased responsiveness prior to this he had a bunch of artifact on the telemetry and is believed to be postictal) Psychiatric: Normal Affect, Normal Mood Skin Exam: Warm, Dry, Intact Course - Vital Signs Last Recorded V/S: Last Vital Signs Temp 39.7 C H 02/08/20 19:51 Pulse 126 H 02/08/20 19:51 Resp 24 H 02/08/20 19:51 BP 115/65 02/08/20 19:51 Pulse Ox 91 L 02/08/20 19:51 - Orders/Labs/Meds Orders: Active Orders 24 hr Category Date Time Status EKG 12 Lead [EKG Documentation Completion] [RC] STAT Care 02/08/20 21:28 Active Chest 1V Frontal [CR] Stat Exams 02/08/20 20:12 Taken Head wo Cont [CT] Stat Exams 02/08/20 20:31 Taken CULTURE BLOOD [BC] Stat Lab 02/08/20 22:09 Received CULTURE BLOOD [BC] Stat Lab 02/08/20 22:16 Received REFLEX LACTIC ACID YES OR NO [CHEM] Routine Lab 02/08/20 21:37 Received TROPONIN I [CHEM] Stat Lab 02/08/20 23:00 Received Pharmacy to Dose - Vancomycin Med 02/08/20 22:30 Pending 1 dose .XX ASDIRECTED Vancomycin 1 gm Med 02/08/20 23:00 Active Vancomycin 250 mg Sodium Chloride 0.9% [Normal Saline] 500 ml IV Q24H Blood Culture x2 Reflex Set [OM.PC] Stat Oth 02/08/20 20:12 Ordered Medication Orders Vancomycin HCl 1 gm/Vancomycin HCl 250 mg/ Sodium Chloride 500 mls @ 333.333 mls/hr IV Q24H [facility] Last Admin: 02/08/20 23:13 Dose: 333.333 mls/hr Vancomycin HCl (Pharmacy To Dose - Vancomycin) 1 dose .XX ASDIRECTED [facility] Labs: Laboratory Tests 02/08/20 02/08/20 02/08/20 Range/Units 20:20 20:24 20:24 WBC 8.71 (4.23-9.07) K/mm3 RBC 3.85 L (4.63-6.08) M/mm3 Hgb 12.9 L (13.7-17.5) gm/dl Hct 39.4 L (40.1-51.0) % MCV 102.3 H (79.0-92.2) fl MCH 33.5 H (25.7-32.2) pg MCHC 32.7 (32.2-35.5) g/dl RDW Std Deviation 52.4 H (35.1-43.9) fL Plt Count 229 D (163-337) K/mm3 MPV 9.8 (9.4-12.3) fl Neutrophils % (Manual) 88 H (40-60) % Band Neutrophils % 3 (0-10) % Lymphocytes % (Manual) 7 L (20-40) % Atypical Lymphs % 0 % Monocytes % (Manual) 2 (2-10) % Eosinophils % (Manual) 0 L (0.8-7.0) % Basophils % (Manual) 0 L (0.2-1.2) Platelet Estimate Adequate Macrocytosis 1+ slight RBC Morph Comment Not Reportable Sodium 139 (136-145) mEq/L Potassium 4.6 (3.5-5.1) mEq/L Chloride 106 (98-107) mEq/L Carbon Dioxide 22 (21-32) mEq/L Anion Gap 15.6 H (5-15) BUN 20 H (7-18) mg/dL Creatinine 1.4 H (0.7-1.3) mg/dL Est Cr Clr Drug Dosing 43.49 mL/min Estimated GFR (MDRD) 49 (>60) mL/min BUN/Creatinine Ratio 14.3 (14-18) Glucose 105 (83-115) mg/dL Lactic Acid (0.4-2.0) mmol/L Calcium 8.4 L (8.5-10.1) mg/dL Total Bilirubin 0.4 (0.2-1.0) mg/dL AST 16 (15-37) U/L ALT 11 L (16-63) U/L Alkaline Phosphatase 148 H (46-116) U/L Troponin I 0.122 H* (0.00-0.056) ng/mL Total Protein 7.2 (6.4-8.2) g/dl Albumin 3.2 L (3.4-5.0) g/dl Globulin 4.0 gm/dL Albumin/Globulin Ratio 0.8 L (1-2) TSH 3rd Generation 0.883 (0.358-3.74) uIU/mL Urine Color (Yellow) Urine Appearance (Clear) Urine pH (5.0-8.0) Ur Specific Gifford (1.005-1.030) Urine Protein (Negative) Urine Glucose (UA) (Negative) Urine Ketones (Negative) Urine Occult Blood (Negative) Urine Nitrite (Negative) Urine Bilirubin (Negative) Urine Urobilinogen (0.2-1.0) Ur Leukocyte Esterase (Negative) U Hyaline Cast (Auto) (0-5) /lpf Urine RBC (0-5) /hpf Urine WBC (0-5) /hpf Ur Squamous Epith Cells (0-5) /hpf Amorphous Sediment (NOT SEEN) /hpf Urine Bacteria (FEW) /hpf Urine Mucus (FEW) /hpf Urine Opiates Screen (XZWMTC=214) Ur Buprenorphine Scrn (CUTOFF=10) Ur Oxycodone Screen (EWZ5KO=540) Urine Methadone Screen (CXB8AZ=315) Ur Propoxyphene Screen (ZEGQJQ=141) Ur Barbiturates Screen (NYLPAS=344) Phenytoin 9.0 L (10.0-20.0) ug/mL Ur Tricyclics Screen (AOTJGC=054) Ur Phencyclidine Scrn (CUTOFF=25) Ur Amphetamine Screen (UJEDCZ=937) U Methamphetamines Scrn (NKXIIJ=977) Phenobarbital 14.1 L (15.0-40.0) ug/mL U Benzodiazepines Scrn (WRRBSG=129) U Cocaine Metab Screen (YDYWDL=036) U Marijuana (THC) Screen (CUTOFF=50) Ethyl Alcohol (0.00) gm% 02/08/20 02/08/20 02/08/20 Range/Units 20:24 20:24 20:35 WBC (4.23-9.07) K/mm3 RBC (4.63-6.08) M/mm3 Hgb (13.7-17.5) gm/dl Hct (40.1-51.0) % MCV (79.0-92.2) fl MCH (25.7-32.2) pg MCHC (32.2-35.5) g/dl RDW Std Deviation (35.1-43.9) fL Plt Count (163-337) K/mm3 MPV (9.4-12.3) fl Neutrophils % (Manual) (40-60) % Band Neutrophils % (0-10) % Lymphocytes % (Manual) (20-40) % Atypical Lymphs % % Monocytes % (Manual) (2-10) % Eosinophils % (Manual) (0.8-7.0) % Basophils % (Manual) (0.2-1.2) Platelet Estimate Macrocytosis RBC Morph Comment Sodium (136-145) mEq/L Potassium (3.5-5.1) mEq/L Chloride (98-107) mEq/L Carbon Dioxide (21-32) mEq/L Anion Gap (5-15) BUN (7-18) mg/dL Creatinine (0.7-1.3) mg/dL Est Cr Clr Drug Dosing mL/min Estimated GFR (MDRD) (>60) mL/min BUN/Creatinine Ratio (14-18) Glucose (83-115) mg/dL Lactic Acid 3.8 H* (0.4-2.0) mmol/L Calcium (8.5-10.1) mg/dL Total Bilirubin (0.2-1.0) mg/dL AST (15-37) U/L ALT (16-63) U/L Alkaline Phosphatase (46-116) U/L Troponin I (0.00-0.056) ng/mL Total Protein (6.4-8.2) g/dl Albumin (3.4-5.0) g/dl Globulin gm/dL Albumin/Globulin Ratio (1-2) TSH 3rd Generation (0.358-3.74) uIU/mL Urine Color Yellow (Yellow) Urine Appearance Clear (Clear) Urine pH 5.5 (5.0-8.0) Ur Specific Gifford 1.015 (1.005-1.030) Urine Protein 1+ H (Negative) Urine Glucose (UA) Negative (Negative) Urine Ketones Negative (Negative) Urine Occult Blood 3+ H (Negative) Urine Nitrite Negative (Negative) Urine Bilirubin Negative (Negative) Urine Urobilinogen 0.2 (0.2-1.0) Ur Leukocyte Esterase Negative (Negative) U Hyaline Cast (Auto) 0-5 (0-5) /lpf Urine RBC 20-30 H (0-5) /hpf Urine WBC 0-5 (0-5) /hpf Ur Squamous Epith Cells 0-5 (0-5) /hpf Amorphous Sediment Few H (NOT SEEN) /hpf Urine Bacteria Few (FEW) /hpf Urine Mucus Few (FEW) /hpf Urine Opiates Screen (HJTXIC=724) Ur Buprenorphine Scrn (CUTOFF=10) Ur Oxycodone Screen (EXC7XO=428) Urine Methadone Screen (PWQ0MN=948) Ur Propoxyphene Screen (EKYAWP=026) Ur Barbiturates Screen (CTMFHL=004) Phenytoin (10.0-20.0) ug/mL Ur Tricyclics Screen (ABOYYE=900) Ur Phencyclidine Scrn (CUTOFF=25) Ur Amphetamine Screen (XEHNWX=836) U Methamphetamines Scrn (MBNQQT=005) Phenobarbital (15.0-40.0) ug/mL U Benzodiazepines Scrn (SYFDXW=010) U Cocaine Metab Screen (XYHBNO=312) U Marijuana (THC) Screen (CUTOFF=50) Ethyl Alcohol 0.00 (0.00) gm% 02/08/20 Range/Units 21:01 WBC (4.23-9.07) K/mm3 RBC (4.63-6.08) M/mm3 Hgb (13.7-17.5) gm/dl Hct (40.1-51.0) % MCV (79.0-92.2) fl MCH (25.7-32.2) pg MCHC (32.2-35.5) g/dl RDW Std Deviation (35.1-43.9) fL Plt Count (163-337) K/mm3 MPV (9.4-12.3) fl Neutrophils % (Manual) (40-60) % Band Neutrophils % (0-10) % Lymphocytes % (Manual) (20-40) % Atypical Lymphs % % Monocytes % (Manual) (2-10) % Eosinophils % (Manual) (0.8-7.0) % Basophils % (Manual) (0.2-1.2) Platelet Estimate Macrocytosis RBC Morph Comment Sodium (136-145) mEq/L Potassium (3.5-5.1) mEq/L Chloride (98-107) mEq/L Carbon Dioxide (21-32) mEq/L Anion Gap (5-15) BUN (7-18) mg/dL Creatinine (0.7-1.3) mg/dL Est Cr Clr Drug Dosing mL/min Estimated GFR (MDRD) (>60) mL/min BUN/Creatinine Ratio (14-18) Glucose (83-115) mg/dL Lactic Acid (0.4-2.0) mmol/L Calcium (8.5-10.1) mg/dL Total Bilirubin (0.2-1.0) mg/dL AST (15-37) U/L ALT (16-63) U/L Alkaline Phosphatase (46-116) U/L Troponin I (0.00-0.056) ng/mL Total Protein (6.4-8.2) g/dl Albumin (3.4-5.0) g/dl Globulin gm/dL Albumin/Globulin Ratio (1-2) TSH 3rd Generation (0.358-3.74) uIU/mL Urine Color (Yellow) Urine Appearance (Clear) Urine pH (5.0-8.0) Ur Specific Gifford (1.005-1.030) Urine Protein (Negative) Urine Glucose (UA) (Negative) Urine Ketones (Negative) Urine Occult Blood (Negative) Urine Nitrite (Negative) Urine Bilirubin (Negative) Urine Urobilinogen (0.2-1.0) Ur Leukocyte Esterase (Negative) U Hyaline Cast (Auto) (0-5) /lpf Urine RBC (0-5) /hpf Urine WBC (0-5) /hpf Ur Squamous Epith Cells (0-5) /hpf Amorphous Sediment (NOT SEEN) /hpf Urine Bacteria (FEW) /hpf Urine Mucus (FEW) /hpf Urine Opiates Screen Negative (NZFCOY=502) Ur Buprenorphine Scrn Negative (CUTOFF=10) Ur Oxycodone Screen Negative (GTE5YM=237) Urine Methadone Screen Negative (LUQ9IT=556) Ur Propoxyphene Screen Negative (QSNKRU=116) Ur Barbiturates Screen Presumptive positive H (VOGFBP=215) Phenytoin (10.0-20.0) ug/mL Ur Tricyclics Screen Negative (GKAQFA=656) Ur Phencyclidine Scrn Negative (CUTOFF=25) Ur Amphetamine Screen Negative (TDCTVK=045) U Methamphetamines Scrn Negative (WKCZEH=149) Phenobarbital (15.0-40.0) ug/mL U Benzodiazepines Scrn Negative (ZUOYAV=692) U Cocaine Metab Screen Negative (KTLGHR=222) U Marijuana (THC) Screen Negative (CUTOFF=50) Ethyl Alcohol (0.00) gm% Meds: Medications Generic Name Dose Route Start Last Admin Trade Name Freq PRN Reason Stop Dose Admin Vancomycin HCl 1 gm/ 500 mls @ 333.333 mls/hr 02/08/20 23:00 02/08/20 23:13 Vancomycin HCl 250 mg/ Sodium IV 333.333 mls/hr Chloride Q24H LUCIANA Administration Vancomycin HCl 1 dose 02/08/20 22:30 Pharmacy To Dose - Vancomycin .XX ASDIRECTED LUCIANA Discontinued Medications Generic Name Dose Route Start Last Admin Trade Name Freq PRN Reason Stop Dose Admin Gentamicin Sulfate 1,000 mg 02/08/20 22:15 Gentamicin IV .Pharmacy to Dose LUCIANA Lactated Ringer's Confirm 02/08/20 20:19 02/08/20 22:25 Ringers, Lactated Administered 02/08/20 20:20 Not Given Dose 1,000 mls @ as directed .ROUTE .STK-MED ONE Lactated Ringer's 1,000 mls @ 999 mls/hr 02/08/20 21:18 02/08/20 20:20 Ringers, Lactated IV 02/08/20 22:18 999 mls/hr .BOLUS ONE Administration Sodium Chloride Confirm 02/08/20 22:08 02/08/20 22:25 Normal Saline Administered 02/08/20 22:09 Not Given Dose 1,000 mls @ as directed .ROUTE .STK-MED ONE Piperacillin Sod/Tazobactam 100 mls @ 200 mls/hr 02/08/20 22:15 02/08/20 22: 27 Sod 4.5 gm/ Sodium Chloride IV 02/08/20 22:44 200 mls/hr ONETIME ONE Administration Lorazepam 1 mg 02/08/20 20:28 02/08/20 20:25 Ativan IVPUSH 02/08/20 20:29 1 mg ONETIME ONE Administration Lorazepam 1 mg 02/08/20 21:18 02/08/20 21:00 Ativan IVPUSH 02/08/20 21:19 1 mg ONETIME ONE Administration - Re-Assessments/Exams Free Text/Narrative Re-Assessment/Exam: 02/08/20 22:11 Had a seizure-like episode here in the emergency department we did learn that they recently decreased his Dilantin dose. While working with this his troponin came back elevated at 0.122. His EKG was concerning but does not show any acute changes from 16 days ago. And not felt to truly represent a STEMI. Remaining labs back head CT back. I discussed the situation with Dr. Brewster emergency room physician at [facility] in [place]. He kindly accepted the patient wanted sorted out before sending him to the floor if the patient wakes up enough to the point we will put him on aspirin but hold off on heparin. With his fevers tachycardia we will start him on Zosyn and gent after blood cultures obtained Departure - Departure Time of Disposition: 22:13 Disposition: DC/Tfer to [facility] Clinical Impression: Sepsis, Elevated troponin - Discharge Information Referrals: Long Rosado PA-C [Primary Care Provider] - Forms: ED Department Discharge Sepsis Event Note - Evaluation Sepsis Screening Result: Possible Sepsis Risk - Focused Exam Vital Signs: Vital Signs Temp Pulse Resp BP Pulse Ox 02/08/20 19:51 39.7 C H 126 H 24 H 115/65 91 L Date Exam was Performed: 02/08/20 Time Exam was Performed: 23:18 - My Orders Last 24 Hours: My Active Orders 02/08/20 20:12 Chest 1V Frontal [CR] Stat Blood Culture x2 Reflex Set [OM.PC] Stat 02/08/20 20:31 Head wo Cont [CT] Stat 02/08/20 21:28 EKG 12 Lead [EKG Documentation Completion] [RC] STAT 02/08/20 21:37 REFLEX LACTIC ACID YES OR NO [CHEM] Routine 02/08/20 22:09 CULTURE BLOOD [BC] Stat 02/08/20 22:16 CULTURE BLOOD [BC] Stat 02/08/20 22:30 Pharmacy to Dose - Vancomycin 1 dose .XX ASDIRECTED 02/08/20 23:00 TROPONIN I [CHEM] Stat Vancomycin 1 gm Vancomycin 250 mg Sodium Chloride 0.9% [Normal Saline] 500 ml IV Q24H - Assessment/Plan Last 24 Hours: My Active Orders 02/08/20 20:12 Chest 1V Frontal [CR] Stat Blood Culture x2 Reflex Set [OM.PC] Stat 02/08/20 20:31 Head wo Cont [CT] Stat 02/08/20 21:28 EKG 12 Lead [EKG Documentation Completion] [RC] STAT 02/08/20 21:37 REFLEX LACTIC ACID YES OR NO [CHEM] Routine 02/08/20 22:09 CULTURE BLOOD [BC] Stat 02/08/20 22:16 CULTURE BLOOD [BC] Stat 02/08/20 22:30 Pharmacy to Dose - Vancomycin 1 dose .XX ASDIRECTED 02/08/20 23:00 TROPONIN I [CHEM] Stat Vancomycin 1 gm Vancomycin 250 mg Sodium Chloride 0.9% [Normal Saline] 500 ml IV Q24H
[2020-02-08] MEDS ORDERED: Lactated Ringers 1,000 ML ONE (20:19)
[2020-02-08] MEDS ORDERED: LORazepam 2 MG/ML SDV IVPUSH ONE ×2 (20:28→21:18)
[2020-02-08] MEDS ORDERED: Lactated Ringers 1,000 ML IV ONE (21:18)
[2020-02-08] MEDS ORDERED: Sodium Chloride 0.9% 1,000 ML ONE (22:08)
[2020-02-08] MEDS ORDERED: Gentamicin 40 MG/ML 2 ML Vial IV SCH (22:15)
[2020-02-08] MEDS ORDERED: Piperacillin/Tazobactam 4.5 GM in Sodium Chloride 0.9% 100 ML IV ONE (22:15)
[2020-02-08] MEDS ORDERED: Vancomycin 1 GM, Vancomycin 250 MG in Sodium Chloride 0.9% 500 ML IV SCH (23:00)
[2020-02-08] MEDS ORDERED: Lactated Ringers 1,000 ML IV SCH (23:45)
--- NOTE | 2020-02-09 07:18 | CT ---
Head CT Technique: Multiple axial sections through the brain were obtained. Intravenous contrast was not utilized. Comparison: Prior noncontrast head CT of 12/29/19. Findings: Ventricles along with basal cisterns and sulci over the convexities are mildly prominent. Mild areas of diminished density are noted within the periventricular white matter which is felt compatible with small vessel ischemic demyelination change. Old lacunar infarcts are noted within the basal ganglia. Mild ex vacuole enlargement of the lateral left ventricle is seen. Calcification is seen next to the interhemispheric fissure within the medial left frontal lobe which appears stable from prior study and therefore felt to be benign. No evidence of intracranial hemorrhage. No midline shift or mass-effect is seen. Visualized mastoid sinuses and visualized paranasal sinuses are clear. Mild atherosclerotic calcification is seen within the carotid siphon. No acute calvarial abnormality is appreciated. Impression: 1. Findings as noted above. 2. No acute intracranial abnormality is identified. Diagnostic code #2 This report was dictated in MDT I agree with preliminary report from [facility], finalized on 02/08/20, 10:09 PM Central Daylight Time
--- NOTE | 2020-02-09 07:22 | CR ---
Chest: Portable view of the chest was obtained. Comparison: Previous chest x-ray of 10/27/19. Heart size is normal. Tortuous thoracic aorta is seen. Lung markings are mildly increased. Lungs are slightly hyperinflated. Bony structures are osteopenic. Degenerative change is scattered within the spine. Previous sternotomy is noted. Impression: 1. Lungs are slightly hyperinflated possibly due to emphysematous change. 2. Mild increased lung markings. Findings represent an interval change from prior study and could represent acute pulmonary vascular congestion or represent infectious bronchitis. 3. Other findings as noted above which are nonacute. Diagnostic code #3 This report was dictated in MDT
== END 2020-02-09 00:12 ==
LOC: JD.ED 19:28
DX: A41.9 Sepsis, unspecified organism (principal); R79.89 Other specified abnormal findings of blood chemistry; R11.2 Nausea with vomiting, unspecified; I10 Essential (primary) hypertension; E78.00 Pure hypercholesterolemia, unspecified; I25.2 Old myocardial infarction; J44.9 Chronic obstructive pulmonary disease, unspecified; Z86.73 Personal history of transient ischemic attack (TIA), and cerebral infarction without residual deficits; F17.210 Nicotine dependence, cigarettes, uncomplicated; Z88.1 Allergy status to other antibiotic agents; Z79.82 Long term (current) use of aspirin; Z79.899 Other long term (current) drug therapy
CPT/HCPCS: 36415; 70450; 71045; 80053; 80184; 80185; 80306; 80307; 81001; 83605; 84443; 84484; 85007; 85027; 87040; 93005; 96361; 96365; 96367; 96375; 99285; J2060; J2543; J3370; J7040; J7050; J7120; 93010